=== PATIENT | female | born 1995 | race Hispanic/Latino ===

== ENCOUNTER → 2025-06-04 15:14 | Outpatient (CLI) | payer OTHER, SELFPAY ==
--- NOTE | 2025-06-04 15:19 | DI.MRI.S_ITS ---
PROCEDURE: MR LUMBAR SPINE WO CON INDICATIONS: Radiculopathy TECHNIQUE: Noncontrast sagittal T1 spin echo and T2 fast echo, sagittal STIR, and T2 fast spin echo through the lumbar spine. In cases with scoliosis, additional coronal T2 fast spin echo may be performed. COMPARISON: None. FINDINGS: Image quality: Excellent. Alignment and Curvature: There is normal bony alignment. Bone Marrow: Marrow is of normal overall signal. No acute vertebral body compression fractures. Spinal Cord: Conus medullaris terminates at the L1 level. Visualized cord demonstrates normal signal and size. Paraspinous Soft Tissues: No paravertebral masses. T12-L1: Normal appearance. L1-L2: Normal appearance. L2-L3: Normal appearance. L3-L4: Normal appearance. L4-L5: Annulus tear plus mild left paracentral disc protrusion with inferior extrusion. The left L5 nerve root is abutted in the left lateral recess. No significant central canal stenosis or foraminal stenosis. L5-S1: Annulus tear plus relatively broad-based right posterior lateral disc protrusion. The right S1 nerve root is mildly posteriorly deviated in the right lateral recess. Although disc protrusion involves the foramen, there is no foraminal L5 nerve root impingement. IMPRESSION: 1. Annulus tear plus mild left paracentral disc protrusion at L4-L5. The left L5 nerve root is abutted in the left lateral recess. 2. Annulus tear plus mild broad-based right posterior lateral disc protrusion. The right S1 nerve root is mildly posteriorly deviated in the right lateral recess. Comment: Recommend correlation for presence or absence of left L5 and/or right S1 radicular symptoms. Dictated by: Nate Chapa M.D. on 06/05/2025 at 8:07 Approved by: Nate Chapa M.D. on 06/05/2025 at 8:10
== END ==
LOC: MRI 15:17
PROVIDERS: Referring Provider Preventive Medicine Aerospace Medicine; Visit Provider Preventive Medicine Aerospace Medicine
DX: M51.16 Intervertebral disc disorders with radiculopathy, lumbar region (principal); M51.17 Intervertebral disc disorders with radiculopathy, lumbosacral region; M51.A0 Intervertebral annulus fibrosus defect, lumbar region, unspecified size; M51.A3 Intervertebral annulus fibrosus defect, lumbosacral region, unspecified size
CPT/HCPCS: 72148

== ENCOUNTER → 2025-08-02 08:52 | Outpatient (CLI) | payer OTHER, SELFPAY | LOC: PHYS 08:53 | PROVIDERS: Family Provider Preventive Medicine Aerospace Medicine; PCP Preventive Medicine Aerospace Medicine; Referring Provider Orthopaedic Surgery Orthopaedic Surgery of the Spine; Visit Provider Orthopaedic Surgery Orthopaedic Surgery of the Spine | DX: R20.0 Anesthesia of skin (principal); R20.2 Paresthesia of skin | CPT/HCPCS: 95886; 95912 ==